=== PATIENT | female | born 1960 | race Caucasian/White ===

== ENCOUNTER → 2017-08-05 12:17 | Outpatient (CLI) | payer BC, SELFPAY ==
[2017-08-05 13:11] LABS: Amphetamine Urine VISTA NEGATIVE (<1000 ng/mL); Barbiturate Urine VISTA NEGATIVE (< 200 ng/mL); Benzodiazepine Urine VISTA NEGATIVE (< 200 ng/mL); Cocaine Urine VISTA NEGATIVE (< 300 ng/mL); Ecstacy Urine VISTA NEGATIVE (< 500 ng/mL); Methadone Urine VISTA NEGATIVE (< 300 ng/mL); PCP Urine VISTA NEGATIVE (< 25 ng/mL); THC Urine VISTA POSITIVE (< 50 ng/mL); Vista UDS pH Range 6
== END ==
LOC: LAB 12:20
PROVIDERS: Family Provider Nurse Practitioner Family; PCP Nurse Practitioner Family; Visit Provider Anesthesiology Pain Medicine
DX: F11.20 Opioid dependence, uncomplicated (principal)
CPT/HCPCS: 80307

== ENCOUNTER → 2024-02-29 | Outpatient (CLI) | payer OTHER, SELFPAY ==
--- NOTE | 2024-02-29 14:40 | CT_ITS ---
STUDY: CT RIGHT SHOULDER REASON FOR EXAM: Female, 64 years old. RIGHT SHOULDER BLUE PRINT PROTOCOL RADIATION DOSAGE (If Supplied By Facility): CTDIvol = ( 22.70 ) mGy, DLP = ( 572.80 ) mGycm TECHNIQUE: The patient was scanned in a multi detector CT scanner. High resolution transaxial imaging was performed without the administration of intravenous contrast material. Sagittal and coronal images were reconstructed. Individualized dose optimization techniques were used for this CT. COMPARISON: None. FINDINGS: There is anterior subluxation of the humeral head with respect to the glenoid. There is a small Hill-Sachs lesion of the superior posterolateral humeral head (axial series 2 images 33-37). Intact humeral neck and remainder of the proximal humerus. There is a glenohumeral joint effusion. Intact glenoid rim, neck and visualized scapula. Normal coracoid process. Normal visualized lateral clavicle. Normal acromioclavicular articulation. There is a Type II morphology (curved), with a neutral orientation. Normal visualized muscles and soft tissue structures. CT/Extremity Upper without Contra IMPRESSION: Anterior subluxation of the humeral head with respect to the glenoid. Small Hill-Sachs lesion of the superior posterolateral humeral head. Glenohumeral joint effusion. Electronically Signed: Luis Leonard MD at 16:08 EST ,
== END | disposition home or self-care (01) ==
LOC: CT 14:24
PROVIDERS: PCP Nurse Practitioner Family; Referring Provider Student in an Organized Health Care Education/Training Program; Visit Provider Student in an Organized Health Care Education/Training Program
DX: S46.011A Strain of muscle(s) and tendon(s) of the rotator cuff of right shoulder, initial encounter (principal); S46.111A Strain of muscle, fascia and tendon of long head of biceps, right arm, initial encounter; X58.XXXA Exposure to other specified factors, initial encounter
CPT/HCPCS: 73200

== ENCOUNTER 2024-03-21 05:25 | Day surgery (SDC) | payer OTHER, SELFPAY ==
--- NOTE | 2024-03-08 17:49 | PAT.ANE_ITS ---
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 When Was Last Pacemaker Check QUESTION #4 FULL TEXT: You/Your Family Experience fever (hyperthermia) with Anesthesia Last Oral Intake Last Oral intake: Last Oral Intake NPO since Meds taken in AM with sips of water? Meds patient instructed to take am of surgery PONV PONV - act english tutor: PONV - act english tutor Female Yes 02/24/24 09:15 HX of Motion Sickness No 02/24/24 09:15 HX of N/V After Surgery No 02/24/24 09:15 Non-Smoker Yes 02/24/24 09:15 Duration of Surgery greater Yes 02/24/24 09:15 than 60 minutes Number of Risk Factors 3 02/24/24 09:15 PONV Score Moderate Risk 02/24/24 09:15 Respiratory Assessment Respiratory Assessment - act english tutor: Respiratory Tract Infection Hx - act english tutor Hx Respiratory Tract Infection No 02/24/24 09:15 STOP Sleep Apnea STOP Sleep Apnea - act english tutor: STOP Sleep Apnea - act english tutor Hx Hypertension Yes: CONTROLLED WITH MED 02/24/24 09:15 Hx Sleep Apnea No 02/24/24 09:15 CPAP No 12/27/14 18:18 BIPAP No 12/25/14 09:31 Do you snore loudly (louder No 02/24/24 09:15 than talking or can be heard Do you often feel tired/ No 02/24/24 09:15 fatigued/ sleepy during daytime? Has anyone observed you stop No 02/24/24 09:15 breathing during sleep? STOP Results Negative 02/24/24 09:15 QUESTION #5 FULL TEXT : Do you snore loudly (louder than talking or can be heard through closed doors)? 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 Specify any problems Hx of Preganancy in last 3 No 02/24/24 09:15 Months Nurse Filling Out Transfusion DSCHRIBER 02/24/24 09:15 & Questions: Date: 02/24/24 02/24/24 09:15 Time: :02/24/24 09:15 Patient unable to answer at this time (ie. confused, unrespo /Reproduction History /Reproductive History - act english tutor: /Reproductive Hx- act english tutor Hx Now No 02/24/24 09:15 Gestational Age (in weeks): EDC: Hx Hx Para Hx Section SAB No 02/24/24 09:15 [facility] Medical History (Updated 02/24/24 @ 09:26 by Rosaura Rivera) COVID-19 Wears glasses Post-menopausal Alcohol use Diabetes Arthritis Back pain DDD (degenerative disc disease), lumbar DDD (degenerative disc disease), cervical Gastric reflux Former smoker Asthma Shortness of breath on exertion History of pain when walking History of stress test Hypertension Home Medications ?Medication ?Instructions ?Recorded ?Last Taken ?Type meloxicam 7.5 mg tablet 7.5 mg PO DAILY 11/27/14 Unknown History tizanidine 4 mg tablet (Zanaflex) 4 mg PO TID 11/27/14 12/27/14 07:00 History acetaminophen 325 mg tablet 650 mg PO Q4H PRN pain 02/24/24 Unknown History (Tylenol) albuterol sulfate 90 mcg/actuation 1 puff inhalation Q4H PRN PRN 02/24/24 Unknown History aerosol inhaler wheezing ascorbic acid (vitamin C) 1,000 mg 1,000 mg PO DAILY 02/24/24 Unknown History tablet,extended release (C Complex) faith extract 500 mg capsule 500 mg PO DAILY 02/24/24 Unknown History calcium 333 mg-vit D3 133 3 tab PO DAILY 02/24/24 Unknown History unit-magnesium 133 mg-zinc 5 mg tablet (Shahram Mag Zinc Plus D3) cetirizine 10 mg tablet 10 mg PO DAILY 02/24/24 Unknown History cholecalciferol (vitamin D3) 25 25 mcg PO DAILY 02/24/24 Unknown History mcg (1,000 unit) capsule (Vitamin D3) diclofenac sodium 1 % topical gel 2 g topical DAILY PRN PRN pain 02/24/24 Unknown History (Voltaren Arthritis Pain) diphenhydramine HCl 25 mg capsule 25 mg PO Q8H PRN allergy symptoms 02/24/24 Unknown History (Banophen) famotidine 20 mg tablet (Acid 20 mg PO DAILY 02/24/24 Unknown History 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 (famotidine)) fluticasone propionate 50 1 spray intranasal DAILY PRN 02/24/24 Unknown History mcg/actuation nasal allergy symptoms spray,suspension (Flonase Allergy Relief) guaifenesin 600 mg tablet, 600 mg PO BID 02/24/24 Unknown History extended release 12 hr (Mucinex) lactobacillus combination no.4 3 3,000 mmu cells PO DAILY 02/24/24 Unknown History billion cell capsule (Probiotic) lidocaine 4 % topical patch 1 patch topical DAILY PRN pain 02/24/24 Unknown History (Lidocaine Pain Relief) lisinopril 5 mg tablet 5 mg PO DAILY 02/24/24 Unknown History turmeric 400 mg capsule 400 mg PO DAILY 02/24/24 Unknown History vitamin B complex (Complex B-100 1 tab PO DAILY 02/24/24 Unknown History tablet,extended release) Allergy/AdvReac Type Severity Reaction Status Date / Time pregabalin (From Lyrica) AdvReac Other Verified 02/24/24 09:03 Surgical History (Updated 02/24/24 @ 09:25 by Rosaura Rivera) History of surgical removal of ganglion cyst History of surgical removal of ganglion cyst Hx of tonsillectomy History of bunionectomy of right great toe History of bunionectomy of left great toe Hx of tubal ligation History of carpal tunnel surgery of right wrist History of carpal tunnel surgery of left wrist Social History Smoking Status: Former smoker Audit: Pertinent Findings Pertinent Findings EKG Perinent findings: March 03, 2024. Normal sinus rhythm. Left axis deviation. Compared to EKG of July 2023 the QRS axis has shifted further left. Recommendation Anesthesia Recommendation Anesthesia recommendation: OPTIMIZED for anesthesia
[2024-03-21] VITALS (10 sets, daily range): BP systolic 110–165; BP diastolic 78–110; PULSE 66–97; RESP 16–18; TEMP 36.1–37.3; O2SAT 93–98; BMI 27.8
--- NOTE | 2024-03-21 | SHO_PTH ---
PATIENT: MERLE SULLIVAN LOC: [facility] [place] U#:[id number] AGE/SX: 64/F ROOM: RE03/21/[address]: Dr. Matthew Hanson DO : 1960 BED: DIS: 03/21/2024 SPEC #: [id number] RECD: 03/21/24 12:44 STATUS: АННА REQ #: [id number] TYE: 03/21/24 00:[address]: Matthew Hanson DEPT: SURGICAL PATHOLOGY RECD BY: Rey Kay ENTERED: 03/21/24 12:44 SP TYPE: HUMERUS OTHR DR: Yaneth Orr, CAD PROGRAMMER-C Tissues: Humerus, NOS Procedures: Decalcification bone/plaque Surgery Specimen Level IV HEADER OPERATION: Total shoulder replacement, reverse PRE-OP DIAGNOSIS: Degenerative changes, glenohumeral joint, right TISSUE SUBMITTED: Right humeral head MICROSCOPIC DIAGNOSIS Bone and tissue right shoulder, total shoulder replacement/resection: Humeral head with minimal degenerative osteoarthritic changes. EVER. 03/24/2024 MICROSCOPIC DESCRIPTION Slides are reviewed. GROSS DESCRIPTION Received is one container labeled with the patient's name and designated bone and soft tissue. The specimen consists of a humeral head measuring 4.5 x 5 x 2.5 cm. The articular surface shows areas of erosion and osteophyte formation. No soft tissue is identified. Section Housekeeper sections are submitted in two cassettes after decalcification. / EVER: 03/21/2024 TC:5 CPT: 58677, 34751
[2024-03-21] MEDS: Acetaminophen 500 MG Tablet 1000 MG PO (06:11)
[2024-03-21] MEDS: Celecoxib 200 MG Capsule 400 MG PO (06:11)
[2024-03-21] MEDS: Magnesium 1 GM over 15 mins IV (06:12)
[2024-03-21] MEDS: Gabapentin 600 MG Tablet PO (06:12)
--- NOTE | 2024-03-21 06:47 | PCM.PRE.AN2 ---
ASA Classification* ASA Classification ASA Classification: 2 Assessment & Plan Anesthesia* Anesthesia Assessment Anesthesia Assessment: Discussed sedation and/or anesthesia options, risks, benefits, and alternatives with patient/parents/legal guardian/POA. Questions invited. The patient/parents/legal guardian/POA seems to understand and agrees to proceed with anesthesia plan. Reviewed the physical assessment, medical history, allergy history and patient home medications list prior to surgery/procedure/anesthetic and documented any changes. Performed airway and anesthesia risk assessments. 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 When Was Last Pacemaker Check QUESTION #4 FULL TEXT: You/Your Family Experience fever (hyperthermia) with Anesthesia Last Oral Intake Last Oral intake: Last Oral Intake NPO since 03:00 03/21/24 06:06 Meds taken in AM with sips of Yes 03/21/24 06:06 water? Meds patient instructed to famotadine 03/21/24 06:06 take am of surgery mucinex PONV PONV - network intelligence analyst: PONV - network intelligence analyst Female Yes 02/24/24 09:15 HX of Motion Sickness No 02/24/24 09:15 HX of N/V After Surgery No 02/24/24 09:15 Non-Smoker Yes 02/24/24 09:15 Duration of Surgery greater Yes 02/24/24 09:15 than 60 minutes Number of Risk Factors 3 02/24/24 09:15 PONV Score Moderate Risk 02/24/24 09:15 Height & Weight Height & Weight: Anesthesia: Height & Weight Height 5 ft 8 in 03/21/24 06:06 Weight: 83 kg 03/21/24 06:06 Body Mass Index (BMI) 27.8 03/21/24 06:06 Respiratory Assessment Respiratory Assessment - network intelligence analyst: Respiratory Tract Infection Hx - network intelligence analyst Hx Respiratory Tract Infection No 02/24/24 09:15 STOP Sleep Apnea STOP Sleep Apnea - network intelligence analyst: STOP Sleep Apnea - network intelligence analyst Hx Hypertension Yes: CONTROLLED WITH MED 02/24/24 09:15 Hx Sleep Apnea No 02/24/24 09:15 CPAP No 12/27/14 18:18 BIPAP No 12/25/14 09:31 Do you snore loudly (louder No 02/24/24 09:15 than talking or can be heard Do you often feel tired/ No 02/24/24 09:15 fatigued/ sleepy during daytime? Has anyone observed you stop No 02/24/24 09:15 breathing during sleep? STOP Results Negative 02/24/24 09:15 QUESTION #5 FULL TEXT : Do you snore loudly (louder than talking or can be heard through closed doors)? 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 Specify any problems Hx of Preganancy in last 3 No 02/24/24 09:15 Months Nurse Filling Out Transfusion DSCHRIBER 02/24/24 09:15 & Questions: Date: 02/24/24 02/24/24 09:15 Time: 09:17 02/24/24 09:15 Patient unable to answer at this time (ie. confused, unrespo /Reproduction History /Reproductive History - network intelligence analyst: /Reproductive Hx- network intelligence analyst Hx Now No 02/24/24 09:15 Gestational Age (in weeks): EDC: Hx Hx Para Hx Section SAB No 02/24/24 09:15 Active Medications Active Medications: Current Medications Generic Name Dose Route Start Last Admin Trade Name Freq PRN Reason Stop Dose Admin Magnesium Sulfate 1 gm/ 102 mls @ 408 mls/hr 03/21/24 07:30 03/21/24 06:12 Dextrose IV 03/21/24 07:44 408 mls/hr X1 ONE Administration Insulin Human Lispro 1 - 6 unit 03/21/24 05:50 Insulin Lispro 100 Unit/Ml Insuln.Pen SC Q4H PRN PRN BG>/= 180, SEE PROTOCOL Protocol PFSH Medical History COVID-19 Wears glasses Post-menopausal Alcohol use Diabetes Arthritis Back pain DDD (degenerative disc disease), lumbar DDD (degenerative disc disease), cervical Gastric reflux Former smoker Asthma Shortness of breath on exertion History of pain when walking History of stress test Hypertension Home Medications ?Medication ?Instructions ?Recorded ?Last Taken ?Type meloxicam 7.5 mg tablet 7.5 mg PO DAILY 11/27/14 03/17/24 History tizanidine 4 mg tablet (Zanaflex) 4 mg PO TID 11/27/14 03/20/24 History acetaminophen 325 mg tablet 650 mg PO Q4H PRN pain 02/24/24 03/20/24 History (Tylenol) albuterol sulfate 90 mcg/actuation 1 puff inhalation Q4H PRN PRN 02/24/24 03/21/24 History aerosol inhaler wheezing ascorbic acid (vitamin C) 1,000 mg 1,000 mg PO DAILY 02/24/24 03/17/24 History tablet,extended release (C Complex) ashwagandha extract 500 mg capsule 500 mg PO DAILY 02/24/24 03/17/24 History calcium 333 mg-vit D3 133 3 tab PO DAILY 02/24/24 03/17/24 History unit-magnesium 133 mg-zinc 5 mg tablet (Shahram Mag Zinc Plus D3) cetirizine 10 mg tablet 10 mg PO DAILY 02/24/24 03/17/24 History cholecalciferol (vitamin D3) 25 25 mcg PO DAILY 02/24/24 03/17/24 History mcg (1,000 unit) capsule (Vitamin D3) diclofenac sodium 1 % topical gel 2 g topical DAILY PRN PRN pain 02/24/24 03/17/24 History (Voltaren Arthritis Pain) diphenhydramine HCl 25 mg capsule 25 mg PO Q8H PRN allergy symptoms 02/24/24 03/20/24 History (Banophen) famotidine 20 mg tablet (Acid 20 mg PO DAILY 02/24/24 03/21/24 History Machine Rigger (famotidine)) fluticasone propionate 50 1 spray intranasal DAILY PRN 02/24/24 03/20/24 History mcg/actuation nasal allergy symptoms spray,suspension (Flonase Allergy Relief) guaifenesin 600 mg tablet, 600 mg PO BID 02/24/24 03/21/24 History extended release 12 hr (Mucinex) lactobacillus combination no.4 3 3,000 mmu cells PO DAILY 02/24/24 03/17/24 History billion cell capsule (Probiotic) lidocaine 4 % topical patch 1 patch topical DAILY PRN pain 02/24/24 03/17/24 History (Lidocaine Pain Relief) lisinopril 5 mg tablet 5 mg PO DAILY 02/24/24 03/20/24 History turmeric 400 mg capsule 400 mg PO DAILY 02/24/24 03/17/24 History vitamin B complex (Complex B-100 1 tab PO DAILY 02/24/24 03/17/24 History tablet,extended release) Allergy/AdvReac Type Severity Reaction Status Date / Time pregabalin (From Lyrica) AdvReac Other Verified 02/24/24 09:03 Surgical History History of surgical removal of ganglion cyst History of surgical removal of ganglion cyst Hx of tonsillectomy History of bunionectomy of right great toe History of bunionectomy of left great toe Hx of tubal ligation History of carpal tunnel surgery of right wrist History of carpal tunnel surgery of left wrist Social History Smoking Status: Former smoker Review of Systems (Anesthesia) ROS Narrative System reviewed and no additional complaints, except as documented.
--- NOTE | 2024-03-21 06:56 | PRE.ANES_ITS ---
ASA Classification* ASA Classification ASA Classification: 3 Assessment & Plan Anesthesia* Anesthesia Assessment Anesthesia Assessment: Discussed sedation and/or anesthesia options, risks, benefits, and alternatives with patient/parents/legal guardian/POA. Questions invited. The patient/parents/legal guardian/POA seems to understand and agrees to proceed with anesthesia plan. Reviewed the physical assessment, medical history, allergy history and patient home medications list prior to surgery/procedure/anesthetic and documented any changes. Performed airway and anesthesia risk assessments. Anesthesia Type Anesthesia Type: General and Block Anesthesia Focused Assessment* Temperature: 99.1 F Pulse Rate: 97 Blood Pressure: 138/78 Respiratory Rate: 18 Pulse Ox: 95 Airway Assessment Mouth opens: >3 cm Mallampati Score: II Focused Labs Anesthesia Preop lab: CBC CHEMISTRY COAG Pre-Assessment Diagnosis/Proposed Procedure Planned Operative Procedure(s): RIGHT REVERSE TOTAL SHOULDER ARTHROPLASTY Anesthesia History Anesthesia History - tester food products: Anesthesia History - tester food products Hx Hospitalization No 02/24/24 09:15 Any Problems With Anesthesia No 02/24/24 09:15 Cholinesterase deficiency No 02/24/24 09:15 You/Your Family Experience No 02/24/24 09:15 fever (hyperthermia) with Relationship Recent Exposure to Contagious No 03/21/24 06:03 Disease Does patient have nerve No 02/24/24 09:15 stimulator Patient instructed to have device shut off --Does patient have Pacemaker No 03/21/24 06:06 or ICD? When Was Last Pacemaker Check QUESTION #4 FULL TEXT: You/Your Family Experience fever (hyperthermia) with Anesthesia Last Oral Intake Last Oral intake: Last Oral Intake NPO since 03:00 03/21/24 06:06 Meds taken in AM with sips of Yes 03/21/24 06:06 water? Meds patient instructed to famotadine 03/21/24 06:06 take am of surgery mucinex PONV PONV - tester food products: PONV - tester food products Female Yes 02/24/24 09:15 HX of Motion Sickness No 02/24/24 09:15 HX of N/V After Surgery No 02/24/24 09:15 Non-Smoker Yes 02/24/24 09:15 Duration of Surgery greater Yes 02/24/24 09:15 than 60 minutes Number of Risk Factors 3 02/24/24 09:15 PONV Score Moderate Risk 02/24/24 09:15 Height & Weight Height & Weight: Anesthesia: Height & Weight Height 5 ft 8 in 03/21/24 06:06 Weight: 83 kg 03/21/24 06:06 Body Mass Index (BMI) 27.8 03/21/24 06:06 Respiratory Assessment Respiratory Assessment - tester food products: Respiratory Tract Infection Hx - tester food products Hx Respiratory Tract Infection No 02/24/24 09:15 STOP Sleep Apnea STOP Sleep Apnea - tester food products: STOP Sleep Apnea - tester food products Hx Hypertension Yes: CONTROLLED WITH MED 02/24/24 09:15 Hx Sleep Apnea No 02/24/24 09:15 CPAP No 12/27/14 18:18 BIPAP No 12/25/14 09:31 Do you snore loudly (louder No 02/24/24 09:15 than talking or can be heard Do you often feel tired/ No 02/24/24 09:15 fatigued/ sleepy during daytime? Has anyone observed you stop No 02/24/24 09:15 breathing during sleep? STOP Results Negative 02/24/24 09:15 QUESTION #5 FULL TEXT : Do you snore loudly (louder than talking or can be heard through closed doors)? 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 Specify any problems Hx of Preganancy in last 3 No 02/24/24 09:15 Months Nurse Filling Out Transfusion DSCHRIBER 02/24/24 09:15 & Questions: Date: 02/24/24 02/24/24 09:15 Time: 09:17 02/24/24 09:15 Patient unable to answer at this time (ie. confused, unrespo /Reproduction History /Reproductive History - tester food products: /Reproductive Hx- tester food products Hx Now No 02/24/24 09:15 Gestational Age (in weeks): EDC: Hx Hx Para Hx Section SAB No 02/24/24 09:15 Active Medications Active Medications: Current Medications Generic Name Dose Route Start Last Admin Trade Name Freq PRN Reason Stop Dose Admin Magnesium Sulfate 1 gm/ 102 mls @ 408 mls/hr 03/21/24 07:30 03/21/24 06:12 Dextrose IV 03/21/24 07:44 408 mls/hr X1 ONE Administration Insulin Human Lispro 1 - 6 unit 03/21/24 05:50 Insulin Lispro 100 Unit/Ml Insuln.Pen SC Q4H PRN PRN BG>/= 180, SEE PROTOCOL Protocol PFSH Medical History COVID-19 Wears glasses Post-menopausal Alcohol use Diabetes Arthritis Back pain DDD (degenerative disc disease), lumbar DDD (degenerative disc disease), cervical Gastric reflux Former smoker Asthma Shortness of breath on exertion History of pain when walking History of stress test Hypertension Home Medications ?Medication ?Instructions ?Recorded ?Last Taken ?Type meloxicam 7.5 mg tablet 7.5 mg PO DAILY 11/27/1408/03 History tizanidine 4 mg tablet (Zanaflex) 4 mg PO TID 11/27/14 03/20/24 History acetaminophen 325 mg tablet 650 mg PO Q4H PRN pain 03/20/24 History (Tylenol) albuterol sulfate 90 mcg/actuation 1 puff inhalation Q 4H PRN PRN 02/24/24 03/21/24 History aerosol inhaler wheezing ascorbic acid (vitamin C) 1,000 mg 1,000 mg PO DAILY 0 02/24/24 03/17/24 History tablet,extended release (C Complex) ashwagandha extract 500 mg capsule 500 mg PO DAILY 03/17/24 History calcium 333 mg-vit D3 133 3 tab PO DAILY 02/24/2408/03 History unit-magnesium 133 mg-zinc 5 mg tablet (Shahram Mag Zinc Plus D3) cetirizine 10 mg tablet 10 mg PO DAILY 02/24/2408/03 History cholecalciferol (vitamin D3) 25 25 mcg PO DAILY 03/17/24 History mcg (1,000 unit) capsule (Vitamin D3) diclofenac sodium 1 % topical gel 2 g topical DAILY WA N PRN pain 02/24/24 03/17/24 History (Voltaren Arthritis Pain) diphenhydramine HCl 25 mg capsule 25 mg PO Q8H PRN all ergy symptoms 02/24/24 03/20/24 History (Banophen) famotidine 20 mg tablet (Acid 20 mg PO DAILY 02/24/24 03/21/24 History Tube Rebuilder (famotidine)) fluticasone propionate 50 1 spray intranasal DAILY PRN 02/24/24 03/20/24 History mcg/actuation nasal allergy symptoms spray,suspension (Flonase Allergy Relief) guaifenesin 600 mg tablet, 600 mg PO BID 02/24/2403/12 History extended release 12 hr (Mucinex) lactobacillus combination no.4 3 3,000 mmu cells PO DA AHMET 02/24/24 03/17/24 History billion cell capsule (Probiotic) lidocaine 4 % topical patch 1 patch topical DAILY PRN pain 02/24/24 03/17/24 History (Lidocaine Pain Relief) lisinopril 5 mg tablet 5 mg PO DAILY 02/24/2403/20 History turmeric 400 mg capsule 400 mg PO DAILY 02/24/2408/03 History vitamin B complex (Complex B-100 1 tab PO DAILY 03/17/24 History tablet,extended release) Allergy/AdvReac Type Severity Reaction Status Date / Time pregabalin (From Lyrica) AdvReac Other Verified 02/24/24 09:03 Surgical History History of surgical removal of ganglion cyst History of surgical removal of ganglion cyst Hx of tonsillectomy History of bunionectomy of right great toe History of bunionectomy of left great toe Hx of tubal ligation History of carpal tunnel surgery of right wrist History of carpal tunnel surgery of left wrist Social History Smoking Status: Former smoker Review of Systems (Anesthesia) ROS Narrative System reviewed and no additional complaints, except as documented.
[2024-03-21] MEDS: Cefazolin 2 GM in Syringe 10 ML IV (07:38)
[2024-03-21] MEDS: TXA 1000mg in NS100 100ml (IVPB at Incision) 660 MG IV (07:50)
[2024-03-21] MEDS: dexAMETHasone 10 MG/ML Vial IV (07:50)
--- NOTE | 2024-03-21 09:35 | RAD_ITS ---
EXAM: SHOULDER MIN 2 VIEWS CLINICAL HISTORY: Right shoulder replacement. COMPARISON: None. TECHNIQUE: Two views were obtained. FINDINGS: The patient is status post right reverse shoulder replacement. There is good alignment. Postoperative soft tissue changes. RAD/Shoulder min 2 Views IMPRESSION: Status post right reverse shoulder replacement. There is good alignment. Postoperative soft tissue changes. Reading Location: [place] [id number]
--- NOTE | 2024-03-21 10:26 | PCM.POST.ANE ---
Anesthesia: Postop Eval I Current Vital Signs Temperature: 97 F Pulse Rate: 66 Blood Pressure: 165/83 Respiratory Rate: 16 Pulse Ox: 97 Oxygen Delivery Method: Nasal Cannula Oxygen Flow Rate (L/min): 4 Assessment Airway patent: Yes Spontaneous unlabored respirations: Yes Mental status: Awake and Calm nausea: No Vomiting: No Anesthesia Complication: No Fluid Hydration Crystalloid volume administer (ml): 800 Total IV fluid infused: 800 Progress Note Anesthesia document: Postop Eval 1 completed: Yes
--- NOTE | 2024-03-21 10:27 | PCM.POSTANE2 ---
Anesthesia Postop Eval I Sum Postop Eval Completion status Anesthesia document: Postop Eval 1 completed: Yes Anesthesia Postop Eval I Summary Anesthesia Postop Eval I Summary: Anesthesia Postop Eval I: Assessment Summary Airway patent Yes 03/21/24 10:27 Spontaneous unlabored Yes 03/21/24 10:27 respirations Mental status Awake,Calm 03/21/24 10:27 nausea No 03/21/24 10:27 Vomiting No 03/21/24 10:27 Anesthesia Postop Eval I: Fluid Summary Crystalloid volume administer 800 03/21/24 10:27 (ml) Colloids volume administered ( ml) Blood Product volume administered (ml) Total IV fluid infused 800 03/21/24 10:27 Anesthesia Postop Eval I: Summary Notes Anesthesia Complication No 03/21/24 10:27 Anesthesia Complication Comment: Post-operative progress note Anesthesia: Postop Eval II Evaluation Mental status: Awake Pain Level: 2 nausea: No Vomiting: No
[2024-03-21 10:52] LABS: Bedside Glucose 93 mg/dL (74-106)
[2024-03-21] MEDS: Cefazolin 1 GM/50 ML BAG IV (11:24)
--- NOTE | 2024-03-21 12:58 | PCM.POST.ANE ---
Anesthesia: Postop Eval I Current Vital Signs Temperature: 97.1 F Pulse Rate: 79 Blood Pressure: 156/89 Respiratory Rate: 16 Pulse Ox: 98 Oxygen Delivery Method: Room Air Assessment Airway patent: Yes Spontaneous unlabored respirations: Yes Mental status: Awake and Calm nausea: No Vomiting: No Anesthesia Complication: No Fluid Hydration Crystalloid volume administer (ml): 1,500 Total IV fluid infused: 1,500 Progress Note Anesthesia document: Postop Eval 1 completed: Yes
--- NOTE | 2024-03-21 16:45 | OP.PCM_ITS ---
Operative Report (Standard) Operative Information Date of Procedure: 03/21/24 Pre-Operative Diagnosis: Irreparable massive right rotator cuff tear Post-Operative Diagnosis: Irreparable massive right rotator cuff tear Surgery/Procedure Performed: Right reverse total shoulder arthroplasty ceramic design engineer: Yes Ski Base Trimmer: Clarice Dawkins Tasks completed by clinical assistant: Opening & closing, Implanting device and Hemostasis: Electrocautery Additional residential real estate assistant?: No Type of Anesthesia: General/Regional RN Documented Start/Stop Times: Operation Date: 03/21/24 07:30 Case Time Into Pre-Op 03/21/24 05:42 Anesthesia Start 03/21/24 07:38 Into Room 03/21/24 07:38 Procedure Start 03/21/24 08:06 Procedure End 03/21/24 09:15 Anesthesia End 03/21/24 09:22 Out of Room 03/21/24 09:22 Into Recovery 03/21/24 09:25 Into Phase II Recovery 03/21/24 09:51 Out of Recovery 03/21/24 09:51 Out of Phase II 03/21/24 11:52 Procedure Start Time: 08:06 Procedure Stop Time: 09:15 Select all DRAINS/GRAFTS/IMPLANTS that apply: Implanted device Implanted device details: Tornier Aequalis PerFORM+ reversed baseplate 25 mm diameter full wedge, standard glenosphere cobalt chrome 36 mm diameter, Tornier perform inlay stem size # 1 plus, + 6 mm retentive size number 136 mm diameter polyethylene insert, short central post and peripheral screws x4. Estimated Blood Loss: 50 cc Specimen collected: Yes Description of specimen(s) removed: Right humeral head Description of surgery: Patient arrived to [facility] morning of the procedure and was greeted by the same day surgery staff. Prior to his procedure, I greeted the patient in the preoperative holding area I identified the patient by name, record number, and date of . Informed consent was confirmed. The operative extremity was marked. All questions were answered to patient satisfaction. An interscalene block was administered prior to procedure by anesthesia staff for postoperative and intraoperative analgesia. At time of her procedure, patient was brought to the operative suite and positioned supine on a standard table with a beachchair attachment. General anesthesia was induced after all bony prominences were well-padded. Endotracheal tube was placed. After adequate anesthesia and securing the tube, we prepared the patient to be positioned in the beachchair position. A well- padded head of marketing was applied. The nonoperative extremity was placed in a well arm amor. She was then brought into the beachchair position after we confirmed an appropriate blood pressure. We then spun the bed 45 degrees. The operative extremity was then prepared. In the butterfly wing of the bed was removed and a well-padded torso strap was applied to secure the patient to the bed. The operative extremity was now free. We then prepped and draped the right upper extremity in normal, sterile orthopedic fashion. We then performed a timeout with all parties in attendance in agreement with the side, site, and operation be performed. 2 g Ancef was administered prior to incision by anesthesia staff, as well as 1 g TXA IV. No concerns were voiced and we elected to proceed. I first marked a standard deltopectoral incision just lateral to the coracoid process in line with the long axis of the humerus. Skin was sharply incised with 10 blade scalpel. I then dissected bluntly through the subcutaneous layers and found the fat stripe between the deltoid and pectoralis major. The cephalic vein was then identified and protected. It was retracted laterally with the deltoid. I then bluntly dissected underneath the deltoid with a Jimenez elevator. Yara retractor was placed. The upper 1 cm of the pectoralis major was released. I then identified the long head of the biceps tendon in the intertubercular groove. This was tenodesed in situ with #2 FiberWire. I then amputated the biceps proximal to the tenodesis site and followed the tendon to the supraglenoid tubercle where it was amputated. This identified the lesser and greater tuberosities. The supraspinatus was completely torn and retracted with an exposed greater tuberosity. I then performed a subscapularis peel while rotating the humerus externally. I tagged the subscapularis for possible repair later with a tagging suture. Humeral head was then dislocated anteriorly. Appropriate access to the humeral head was confirmed. I then subluxed the humeral head posteriorly with a Fukuda retractor placed around the posterior lip of the glenoid. Inferior capsule was tension. I was able to palpate the axillary nerve. Inferior capsule was then released to the 4 o'clock position of the glenoid face. 3 sided subscapularis release was performed with Bovie cautery. I then remove the Fukuda retractor and redislocated the shoulder anteriorly. I then made a anatomic neck cut of the cartilaginous surface of the humeral head. Sizing plate for a size # 1 stem was utilized to determine appropriate reaming size. A central pin was placed engaging the lateral cortex of the humerus. A size #1 reamer was used to ream the humeral metaphysis and prepare for the inlay stem. A canal finding reamer was utilized prior to sequential broaching to a size # 1 short stem with excellent rotational and axial purchase in the humerus. I remove the broach handle left the size # [address] I then subluxed the humerus posterior to the glenoid. I then placed retractors around the posterior and anterior glenoid to expose the glenoid. Glenoid labrum was removed with Bovie cautery protecting the axillary nerve. We then used the wedged guide from [employer] to position our centering pin, exiting approximately 25 mm from the joint surface along the anterior scapula. Guide was removed and pin was analyzed and compared to preoperative planning. It appeared to be in appropriate position. The augment reamer was then placed over top of the centering pin. I reamed a flush surface of the glenoid. We then removed the reamer and used the cannulated drill for the short central post. Post and baseplate was assembled on the back table. We then inserted the baseplate and central post the assembled baseplate to an appropriate depth with good press-fit purchase. A [place] was used to confirm depth. Cortical screws then were placed in the peripheral holes with good purchase. The baseplate had excellent purchase and the entire scapula would rotate with rotation of the baseplate. We then impacted the 36 mm glenosphere with a standard eccentricity and tightened the locking screw mechanism. We then removed retractors and turned our attention back to the humerus. I placed a standard +6 millimeters retentive polyethylene insert. I then reduced the shoulder. There was excellent range of motion and stability in all planes of motion. We selected this as our final size. We removed trials from the humerus after final dislocation. I copiously irrigated the canal. Broach was placed on hand and then impacted to an appropriate depth. Final + 6 mm retentive polyethylene insert was placed. Final reduction was then performed. The subscapularis was then identified with a tagging suture. Repair would have been likely under undue tension and likely failed. I elected to not perform a subscapularis repair. We then copiously irrigated the wound with sterile Betadine and normal saline solution. We reapproximated the interval with 0 Vicryl suture. Subcutaneous layers were reapproximated with 2 -0 Vicryl suture. Skin was finally running V- Loc 3-0 Monocryl suture and Dermabond. A sterile silver Mepilex dressing was applied. Patient was then placed in an ultra sling. Patient tolerated procedure well without complication. She was positioned back in the supine position extubated in the operative suite. She was transferred to the [facility] and subsequently to PACU in stable condition. Need for skilled residential real estate assistant: Clarice Dawkins PA-C was critical to the outcome of the case. During the course of the procedure the physician residential real estate assistant played a vital role. Her intimate knowledge of my steps in the procedure aided in safe and expedient completion of the procedure. The PA played a vital role in positioning particularly in obtaining the appropriate positioning. The PA was also vital in the retraction of soft tissues during the exposure and protecting vital structures. The PA was also vital and protecting soft tissues during times of bony cuts. She also played a vital role in closure with my direct supervision. The PA was also important during reduction and dislocation of the joint and trials intraoperatively. Intraoperative medications: 2 g Ancef IV, 1 g TXA IV x2 Post Operative Plan: Discharge home extremity same-day surgery criteria Weightbearing: Nonweightbearing left upper extremity, okay for pendulums. Range of motion of wrist elbow and hand as tolerated. Antibiotics: 2 g Ancef IV prior to incision, 1 dose prior to discharge DVT Prophylaxis: Aspirin enteric-coated 81 mg twice daily starting tomorrow x 2 weeks Bower: None Dressing: Maintain silver dressing x5 days. Okay to shower dressing on started on day 4 X-Rays: 2 weeks postop in the office Pain Medication: Oxycodone Rx upon discharge Follow-up: 2 weeks post-operatively with me in the office Surgical Findings: Massive right rotator cuff tear with early cuff tear arthropathy changes. Stable right reverse shoulder arthroplasty following final reduction Complications Complications: No Admit VTE Documentation VTE Present on Admission: No VTE Mechan Device Prophylaxis: SCD's VTE Pharm Prophylaxis ordered?: Yes
== END 2024-03-21 11:52 | disposition home or self-care (01) ==
LOC: SDC 05:26 → AC 05:27
PROVIDERS: PCP Nurse Practitioner Family; Referring Provider Student in an Organized Health Care Education/Training Program; Visit Provider Student in an Organized Health Care Education/Training Program
PROC: (CPT 23472; principal; 2024-03-21 07:00)
DX: S46.011A Strain of muscle(s) and tendon(s) of the rotator cuff of right shoulder, initial encounter (principal); E11.9 Type 2 diabetes mellitus without complications; X50.0XXA Overexertion from strenuous movement or load, initial encounter; I10 Essential (primary) hypertension; J45.909 Unspecified asthma, uncomplicated; K21.9 Gastro-esophageal reflux disease without esophagitis; Z87.891 Personal history of nicotine dependence
CPT/HCPCS: 23472; 01638; 64415; 73030; 82962; 88305; 88311; 97166; C1713; C1776; J2405; J3475